=== PATIENT | female | born 1975 | race Caucasian/White ===

== ENCOUNTER 2018-02-12 00:54 | Emergency (ER) | payer BC ==
[2018-02-12] MEDS: ERYTHROMYCIN OPHTH OINT OS (01:43)
[2018-02-12] MEDS: TETRACAINE 0.5% OPHTH SOLN 4ML OS (01:55)
== END 2018-02-12 02:17 | disposition home or self-care (01) ==
LOC: M ED 00:54
DX: S05.02XA Injury of conjunctiva and corneal abrasion without foreign body, left eye, initial encounter (principal)
CPT/HCPCS: 99282